=== PATIENT | male | born 1960 | race Caucasian/White ===

== ENCOUNTER 2023-11-07 06:20 | Outpatient (CLI) | payer BC ==
[~2023-11-07 06:20] MED LIST: LEVO500T2 PO; METR-159 PO
[2023-11-07] MEDS ORDERED: LIDOcaine 1%/PF 5ML 10 MG/ML VIAL ONE (06:36)
[2023-11-07] MEDS ORDERED: LIDOcaine 1% 30ml preserv. free vial ONE (06:37)
[2023-11-07] MEDS ORDERED: iohexol 300 MG/1 ML 50ml polymer ONE (06:37)
[2023-11-07] MEDS ORDERED: GADOTERATE MEGLUMINE 7.5 MMOL/15 ML VIAL IV ONE (06:37)
== END 2023-11-07 23:59 | disposition home or self-care (01) ==
LOC: RAD 06:20
PROVIDERS: ATTEND Family Medicine Sports Medicine
DX: M25.512 Pain in left shoulder (principal); M75.112 Incomplete rotator cuff tear or rupture of left shoulder, not specified as traumatic; M19.012 Primary osteoarthritis, left shoulder; M75.52 Bursitis of left shoulder; M25.412 Effusion, left shoulder; M75.22 Bicipital tendinitis, left shoulder; M75.92 Shoulder lesion, unspecified, left shoulder
CPT/HCPCS: 23350; 73222; 77002; A9575; J3490; Q9967; 73040